=== PATIENT | female | born 1980 | race Caucasian/White ===

== ENCOUNTER 2021-11-11 20:08 | Emergency (ER) | payer SELFPAY ==
[2021-11-11] MEDS ORDERED: Hydrochlorothiazide 25 MG TAB ONE (20:33)
[2021-11-11] MEDS ORDERED: traMADol HCl 50 MG TAB ONE (20:33)
[2021-11-11] MEDS ORDERED: Amlodipine 5 MG TAB ONE (20:33)
== END 2021-11-11 20:50 | disposition home or self-care (01) ==
LOC: NAV ERS 20:08
DX: I10 Essential (primary) hypertension (principal); Z91.14 Patient's other noncompliance with medication regimen; Z79.899 Other long term (current) drug therapy
CPT/HCPCS: 99283